=== PATIENT | female | born 1965 | race Caucasian/White ===

== ENCOUNTER 2017-08-12 08:29 | Observation (INO) | payer BC ==
[~2017-08-12] VITALS: Ht 165.1 cm; Wt 85.7 kg
[2017-08-12 09:47] LABS: BASOPHILS % 0.2 % (0.0-1.0); EOSINOPHILS # (AUTO) 0.3 (0.0-0.4); EOSINOPHILS % 2.4 % (0.0-6.0); HEMATOCRIT 24.9 % (34.2-44.1); LYMPHOCYTES # (AUTO) 2.5 (1.0-3.2); LYMPHOCYTES % 19.2 % (18.0-39.1); MEAN CORPUSCULAR HEMOGLOBIN 21.1 pg (28-32); MEAN CORPUSCULAR HGB CONC 30.1 g/dL (31-35); MEAN CORPUSCULAR VOLUME 70.1 fL (81-99); MONOCYTES # (AUTO) 0.6 (0.2-0.8); MONOCYTES % 4.8 % (4.4-11.3); NEUTROPHILS # (AUTO) 9.2 (2.1-6.9); NEUTROPHILS % 72.2 % (38.7-80.0); PLATELET COUNT 447 x10e3/uL (140-360); RED BLOOD COUNT 3.55 x10e6/uL (3.6-5.1); RED CELL DISTRIBUTION WIDTH 16.4 % (11.7-14.4)
--- NOTE | 2017-08-12 09:48 | Diagnostic Imaging Report ---
EXAMINATION: CHEST SINGLE (PORTABLE) INDICATION: Increased heart rate. \S\ERMD ORDER \S\[id number] \S\0905 \S\Y COMPARISON: None FINDINGS: AP view TUBES and LINES: None. LUNGS: Limited by body habitus. Lungs are well inflated. Lungs are clear. There is no evidence of pneumonia or pulmonary edema. PLEURA: No pleural effusion or pneumothorax. HEART AND MEDIASTINUM: The cardiomediastinal silhouette is unremarkable. BONES AND SOFT TISSUES: No acute osseous lesion. Soft tissues are unremarkable. UPPER ABDOMEN: No free air under the diaphragm. IMPRESSION: No acute thoracic abnormality. Signed by: Dr. Abhay Casas MD on 08/12/2017 9:44 AM
[2017-08-12 10:11] LABS: HEMOGLOBIN 7.5 g/dL (12.0-16.0)
[2017-08-12 10:18] LABS: ALANINE AMINOTRANSFERASE 38 IU/L (0-55); ALBUMIN 3.5 g/dL (3.5-5.0); ALBUMIN/GLOBULIN RATIO 0.9 (0.8-2.0); ALKALINE PHOSPHATASE 74 IU/L (40-150); BLOOD UREA NITROGEN 16 mg/dL (7-26); BUN/CREATININE RATIO 20 (6-25); CALCIUM 9.2 mg/dL (8.4-10.2); CARBON DIOXIDE 22 mmol/L (22-29); CHLORIDE 107 mmol/L (98-107); CREATINE KINASE 48 IU/L (29-168); CREATININE, SERUM 0.81 mg/dL (0.57-1.11); EST GLOMERULAR FILTRATION RATE > 60 ML/MIN (60-); GLUCOSE 112 mg/dL (74-118); SODIUM 137 mmol/L (136-145)
[2017-08-12 10:36] LABS: INR 0.91; PARTIAL THROMBOPLASTIN TIME 28.1 seconds (23.8-35.5); PROTHROMBIN TIME 12.7 seconds (11.9-14.5)
[2017-08-12 10:38] LABS: THYROID STIMULATING HORMONE 2.842 uIU/mL (0.350-4.940); TROPONIN I 0.013 ng/mL (0-0.300)
[2017-08-12 11:53] LABS: BILIRUBIN,URINE NEGATIVE (NEGATIVE); CLARITY,URINE CLEAR (CLEAR); COLOR,URINE YELLOW (YELLOW); KETONES,URINE NEGATIVE (NEGATIVE); LEUKOCYTE ESTERASE ,URINE NEGATIVE (NEGATIVE); NITRITE,URINE NEGATIVE (NEGATIVE); PROTEIN,URINE DIPSTICK NEGATIVE (NEGATIVE); URINE UROBILINOGEN 0.2 mg/dL (0.2 - 1)
[2017-08-12 12:01] LABS: % IRON SATURATION 3 % (15-50); IRON 16 ug/dL (50-170); TOTAL IRON BINDING CAPACITY 532 ug/dL (261-478); TRANSFERRIN 380 mg/dL (180-382)
[2017-08-12 12:11] LABS: BACTERIA,URINE FEW /HPF; EPITHELIAL CELLS,URINE FEW /LPF; RBC,URINE 0-5 /HPF (0-5); WBC,URINE (MAN) 0-5 /HPF (0-5)
[2017-08-12] MEDS: SODIUM CHLORIDE 0.9% 1000ML 1,000 ML IV SCH ×2 (12:26→18:45)
[2017-08-12 13:00] VITALS: BP 141/62
[2017-08-12] MEDS ORDERED: CIPRO500 MG PO (13:56)
[2017-08-12] MEDS ORDERED: ASPIRIN ENTERI325 MG PO (13:56)
[2017-08-12] MEDS ORDERED: SUPER B COMPLE1 EACH PO (13:56)
[2017-08-12] MEDS ORDERED: FISH OIL 500 M1 EAC1 PO (13:56)
[2017-08-12 14:08] VITALS: BP 141/62
[2017-08-12] MEDS ORDERED: BISACODYL 5 MG TAB EC PO ONE (15:30)
[2017-08-12] MEDS ORDERED: PEG (High)/E-LYTE SOLN 4,000 ML BTL PO ONE (15:30)
--- NOTE | 2017-08-12 15:57 | Consultation ---
DATE OF CONSULTATION: August 12, 2017 GASTROENTEROLOGY CONSULTATION REFERRING PHYSICIAN: Dr. Lema. REASON FOR CONSULTATION: Anemia. HISTORY OF PRESENT ILLNESS: Ms. Bashir is a pleasant 52-year-old woman who came in with weakness and palpitations. It has been going on for 3 or 4 days now. She has a little bit of lower abdominal pain and discomfort and lately has had constipation with hard stools. She says she has had anemia on and off her whole life. She has never had an endoscopic evaluation. She does not have heavy periods. She has no other overt bleeding. Her brother has celiac disease, and an older sister is also anemic. She was started on iron pills 5 years ago, which improved the anemia. She does have joint pain but no rashes. PAST MEDICAL HISTORY: Hypothyroidism and iron deficiency anemia. MEDICATIONS AND ALLERGIES: Reviewed. Please see MAR medication reconciliation form. SOCIAL HISTORY: No alcohol, tobacco or illicit substance. FAMILY HISTORY: Positive for anemia and celiac disease as mentioned. REVIEW OF SYSTEMS: Ten-system review is positive for that mentioned in HPI, otherwise unremarkable. PHYSICAL EXAMINATION GENERAL: Pleasant, alert, oriented, pale, in no acute distress. HEENT: Pupils equal, round, reactive to light, anicteric. Oropharynx is clear. Mucous membranes are moist. NECK: Supple. LUNGS: Clear. CARDIOVASCULAR: S1/S2. ABDOMEN: Soft. Mildly tender in the left lower quadrant. No rebound, guarding or mass. EXTREMITIES: No clubbing, cyanosis or edema. PSYCHIATRIC: Calm, cooperative. NEUROLOGIC: Nonfocal. HEMATOLOGIC/ONCOLOGIC: No bruising or adenopathy. The electronic health record is reviewed for laboratory and radiologic studies as well as history. ASSESSMENT 1. Iron deficiency anemia. 2. Family history of anemia and celiac disease. 3. Possible recent urinary tract infection and left lower quadrant pain. PLAN: At the current time, will need to check celiac panel and get a CAT scan to rule out significant intra-abdominal pathology such as diverticulitis. Will plan for a bowel prep today and EGD/colonoscopy tomorrow assuming no major findings on the CAT scan. She is going to get transfused. Will continue to provide supportive care. Thank you very much for asking me to see Ms. Bashir. Any questions or concerns, please do not hesitate to contact me. Job#: [id number] EV
[2017-08-12] MEDS ORDERED: DIATRIZOATE MEGL/DIATRIZOA SOD 30 ML BTL PO ONE (16:16)
[2017-08-12 16:44] VITALS: BP 132/63
[2017-08-12] MEDS: SODIUM CHLORIDE 0.9% 250ML 250 ML IV ONE ×2 (18:40→19:17)
[2017-08-12] MEDS ORDERED: IOPAMIDOL 370 MG/ML 200 ML INFUS..BTL INJ ONE (18:56)
[2017-08-12] MEDS ORDERED: SODIUM CHLORIDE 0.9% 50ML 50 ML ONE (18:56)
--- NOTE | 2017-08-12 19:28 | Diagnostic Imaging Report ---
EXAM: CT Abdomen and Pelvis WITH contrast INDICATION: Abdominal pain and anemia COMPARISON: None. TECHNIQUE: Abdomen and pelvis were scanned utilizing a multidetector helical scanner from the lung base to the pubic symphysis after administration of IV contrast. Coronal and sagittal reformations were obtained. Routine protocol was performed. Scan was performed when during portal venous phase. IV CONTRAST: 100 mL of Isovue-370 ORAL CONTRAST: Gastrografin RADIATION DOSE: Total DLP: 718.64 mGy*cm Estimated effective dose: (DLP x 0.015 x size factor) mSv COMPLICATIONS: None FINDINGS: LINES and TUBES: None. LOWER THORAX: Unremarkable HEPATOBILIARY: No focal hepatic lesions. No biliary ductal dilation. GALLBLADDER: No radio-opaque stones or sludge. No wall thickening. SPLEEN: No splenomegaly. PANCREAS: No focal masses or ductal dilatation. ADRENALS: No adrenal nodules KIDNEYS/URETERS: Kidneys enhance symmetrically. No hydronephrosis. No cystic or solid mass lesions. No stones. GI TRACT: No abnormal distention, wall thickening, or evidence of bowel obstruction. Appendix is normal. PELVIC ORGANS/BLADDER: The uterus is enlarged with multiple fibroids throughout the myometrium. The uterus measures 11 x 9 x 8.7 cm LYMPH NODES: No lymphadenopathy. VESSELS: Unremarkable. PERITONEUM / RETROPERITONEUM: No free air or fluid. BONES: There are mild degenerative changes in the lumbar spine. SOFT TISSUES: Unremarkable. IMPRESSION: 1. No evidence of acute intra-abdominal or pelvic abnormality. 2. However, there are multiple myometrial fibroids with an enlarged uterus. Signed by: Dr. Bandar Horvath M.D. on 08/12/2017 7:24 PM
[2017-08-12 20:00] VITALS: BP 144/72
[2017-08-13] VITALS (9 sets, daily range): BP systolic 113–130; BP diastolic 57–69
[2017-08-13] MEDS ORDERED: SODIUM CHLORIDE 0.9% 250ML 250 ML ONE (03:02)
[2017-08-13] MEDS ORDERED: PEG (High)/E-LYTE SOLN 4,000 ML BTL PO ONE (03:15)
[2017-08-13] MEDS ORDERED: BISACODYL 5 MG TAB EC PO ONE (03:15)
[2017-08-13] MEDS: SODIUM CHLORIDE 0.9% 1000ML 1,000 ML IV SCH ×3 (03:17→18:01)
[2017-08-13] MEDS ORDERED: ONDANSETRON HCL INJ 2 MG/ML VIAL IV PRN (06:00)
--- NOTE | 2017-08-13 07:32 | History and Physical ---
REASON FOR ADMISSION: The patient comes in with palpitations. HISTORY OF PRESENT ILLNESS: Ms. Rebeca Bashir is a 52-year-old female with a history of palpitations that has been going on for a month. She does have some black, tarry stool according to her for the last month's time. She was seen by me in the clinic about 2 days ago. H and H were 7.5. She was asked to come to the emergency room for possible evaluation and also blood transfusion if needed. PAST HISTORY: Noncontributory. No medical history. The patient's surgical history is noncontributory. MEDICATIONS: She takes at home: 1. Aspirin 325 mg enteric-coated. 2. B complex. 3. Ciprofloxacin. 4. Everett-3 fatty acids. ALLERGIES: SHE IS ALLERGIC TO EGG DERIVATIVES, PENICILLIN, SUNSCREEN AND PEANUTS. SOCIAL HISTORY: No EtOH. No IV drug abuse. FAMILY HISTORY: Noncontributory. REVIEW OF SYSTEMS: Negative for chest pain. Positive for shortness of breath and palpitations. No nausea, vomiting, diarrhea. No constipation. No hematochezia. Positive for melena. No hematemesis. Positive for recent onset of abdominal cramping. Also, uterine bleeding, which was recent according to the patient. The patient has, otherwise, no diplopia and no blurry vision. As mentioned above, positive for palpitations. MICROBIOLOGY: Urine culture is pending. LABORATORY VALUES: Hemoglobin 7.5. Hematocrit 24.9. Neutrophil count is 9.2. Coags were normal. The patient also had a CT scan, which shows no evidence of acute intra-abdominal pathology. However, multiple myometrial fibrosis with an enlarged uterus is seen. PHYSICAL EXAMINATION GENERAL: The patient is alert and oriented times 3. VITAL SIGNS: Temperature 97.8, blood pressure 113/62, respiratory rate 18. Pulse is 87. When she came in, it was 100. HEENT: Normocephalic. No icterus. Positive for pallor. CV: S1 and S2 normal, regular rate and rhythm. ABDOMEN: Slightly tender in the suprapubic area. EXTREMITIES: No clubbing, no cyanosis, no edema. ASSESSMENT: Blood loss anemia, possibly uterine or possibly colon-related. She is going to have an endoscopy and colonoscopy today. Also, I will consult STORE CLERK CHECKER for further evaluation. Further recommendations per the clinical course. We will continue to monitor the patient. Job#: [id number] JACEY
[2017-08-13 09:01] LABS: BASOPHILS % 0.3 % (0.0-1.0); EOSINOPHILS # (AUTO) 0.2 (0.0-0.4); EOSINOPHILS % 1.7 % (0.0-6.0); HEMATOCRIT 32.1 % (34.2-44.1); HEMOGLOBIN 9.7 g/dL (12.0-16.0); LYMPHOCYTES # (AUTO) 2.8 (1.0-3.2); LYMPHOCYTES % 23.5 % (18.0-39.1); MEAN CORPUSCULAR HEMOGLOBIN 22.5 pg (28-32); MEAN CORPUSCULAR HGB CONC 30.2 g/dL (31-35); MEAN CORPUSCULAR VOLUME 74.3 fL (81-99); MONOCYTES # (AUTO) 0.6 (0.2-0.8); MONOCYTES % 5.1 % (4.4-11.3); NEUTROPHILS # (AUTO) 8.1 (2.1-6.9); NEUTROPHILS % 68.6 % (38.7-80.0); PLATELET COUNT 397 x10e3/uL (140-360); RED BLOOD COUNT 4.32 x10e6/uL (3.6-5.1); RED CELL DISTRIBUTION WIDTH 17.5 % (11.7-14.4)
[2017-08-13 09:21] LABS: ALANINE AMINOTRANSFERASE 38 IU/L (0-55); ALBUMIN 3.5 g/dL (3.5-5.0); ALBUMIN/GLOBULIN RATIO 0.9 (0.8-2.0); ALKALINE PHOSPHATASE 69 IU/L (40-150); BLOOD UREA NITROGEN 8 mg/dL (7-26); BUN/CREATININE RATIO 10 (6-25); CARBON DIOXIDE 22 mmol/L (22-29); CHLORIDE 106 mmol/L (98-107); CREATININE, SERUM 0.83 mg/dL (0.57-1.11); EST GLOMERULAR FILTRATION RATE > 60 ML/MIN (60-); GLUCOSE 98 mg/dL (74-118); SODIUM 138 mmol/L (136-145)
[2017-08-13 09:31] LABS: % IRON SATURATION 5 % (15-50); IRON 27 ug/dL (50-170); TOTAL IRON BINDING CAPACITY 507 ug/dL (261-478); TRANSFERRIN 362 mg/dL (180-382)
--- NOTE | 2017-08-13 10:03 | Diagnostic Imaging Report ---
PROCEDURE:TRANSVAGINAL ULTRASOUND COMPARISON:CT abdomen and pelvis 08/12/2017. INDICATIONS:Fibroids TECHNIQUE: Grayscale transverse and sagittal transvaginal images were obtained of the pelvis. FINDINGS: UTERUS: Enlarged, measuring 12 x 8.3 x 9.3 cm. Heterogeneous parenchymal echotexture with multiple masses of mixed echogenicity compatible with fibroids. A cervical fibroid measures 3.7 x 4 x 4.2 cm. A fibroid in the lower uterine segment measures 2.9 x 3.8 x 3.6 cm. A fundal fibroid measures 3.5 x 4.3 x 3.3 cm. Additional fibroids range in size from 4.5-5.1 cm in maximum dimension. Multiple cervical nabothian cysts. ENDOMETRIUM: Mildly thickened measuring 1.9 cm. Homogenous. RIGHT OVARY: 3.6 x 2.1 x 2.7 cm. Dominant follicle or simple cyst measuring 2.3 x 1.6 x 2.1 cm. LEFT OVARY: 3.9 x 1.2 x 2.7 cm. Several small follicles. There is no free fluid within the pelvis. No adnexal masses. CONCLUSION: Enlarged uterus with multiple intramural and subserosal fibroids measuring up to 5.1 cm in maximum diameter. The entirety of the uterine bulk is seen to better advantage on comparison abdominal CT 08/12/2017. Mildly thickened endometrium likely indicates secretory phase of the menstrual cycle. Dictated by: Benji Corea M.D. on 08/13/2017 at 10:12 Electronically approved by: Benji Corea M.D. on 08/13/2017 at 10:12
[2017-08-13] MEDS ORDERED: FENTANYL CITRATE/PF 100MCG/2 ML INJ ONE (12:53)
[2017-08-13] MEDS ORDERED: MIDAZOLAM HCL 2 MG/2 ML VIAL ONE (12:53)
[2017-08-13] MEDS ORDERED: LIDOCAINE HCL 2% LOCAL INJ 5 ML SDV VIAL INJ ONE (15:08)
[2017-08-13] MEDS ORDERED: PROPOFOL IV EMULSION 10 MG/ML 20 ML VIAL ONE (15:08)
[2017-08-13] MEDS ORDERED: DIPHENHYDRAMINE HCL INJ 25 MG in SODIUM CHLORIDE 0.9% 50ML 50 ML IV NR (18:30)
[2017-08-13] MEDS ORDERED: FAMOTIDINE INJ 20 MG in SODIUM CHLORIDE 0.9% 50ML 50 ML IV NR (18:30)
[2017-08-13] MEDS ORDERED: DEXAMETHASONE PHOS 10MG INJ 20 MG in SODIUM CHLORIDE 0.9% 50ML 50 ML IV NR (18:30)
[2017-08-13] MEDS ORDERED: IRON DEXTRAN INJ 50 MG in SODIUM CHLORIDE 0.9% 100 ML IV NR (19:00)
[2017-08-13] MEDS ORDERED: IRON DEXTRAN INJ 500 MG in SODIUM CHLORIDE 0.9% 500ML 500 ML IV PRN (22:00)
[2017-08-14 00:34] VITALS: BP 104/58
[2017-08-14] MEDS: SODIUM CHLORIDE 0.9% 1000ML 1,000 ML IV SCH (02:45)
[2017-08-14 04:00] VITALS: BP 118/62
[2017-08-14 06:55] LABS: BASOPHILS % 0.2 % (0.0-1.0); HEMATOCRIT 31.8 % (34.2-44.1); HEMOGLOBIN 9.8 g/dL (12.0-16.0); LYMPHOCYTES # (AUTO) 1.6 (1.0-3.2); LYMPHOCYTES % 12.1 % (18.0-39.1); MEAN CORPUSCULAR HEMOGLOBIN 22.6 pg (28-32); MEAN CORPUSCULAR HGB CONC 30.8 g/dL (31-35); MEAN CORPUSCULAR VOLUME 73.3 fL (81-99); MONOCYTES # (AUTO) 0.2 (0.2-0.8); MONOCYTES % 1.2 % (4.4-11.3); NEUTROPHILS # (AUTO) 11.2 (2.1-6.9); NEUTROPHILS % 85.7 % (38.7-80.0); PLATELET COUNT 459 x10e3/uL (140-360); RED BLOOD COUNT 4.34 x10e6/uL (3.6-5.1); RED CELL DISTRIBUTION WIDTH 17.7 % (11.7-14.4)
[2017-08-14 07:25] LABS: ANION GAP 12.4 mmol/L (8-16); BLOOD UREA NITROGEN 9 mg/dL (7-26); BUN/CREATININE RATIO 12 (6-25); CALCIUM 9.3 mg/dL (8.4-10.2); CARBON DIOXIDE 23 mmol/L (22-29); CHLORIDE 109 mmol/L (98-107); CREATININE, SERUM 0.76 mg/dL (0.57-1.11); EST GLOMERULAR FILTRATION RATE > 60 ML/MIN (60-); GLUCOSE 134 mg/dL (74-118); POTASSIUM 4.4 mmol/L (3.5-5.1); SODIUM 140 mmol/L (136-145)
[2017-08-14] MEDS: PANTOPRAZOLE SOD 40 MG TABEC PO SCH (08:06)
[2017-08-14 08:07] VITALS: BP 131/71
[2017-08-14 08:31] VITALS: BP 131/71
[2017-08-14 16:27] VITALS: BP 126/59
[2017-08-14 20:00] VITALS: BP 124/78
[2017-08-15] VITALS: BP 98/50
[2017-08-15 04:00] VITALS: BP 124/65
[2017-08-15] MEDS: PANTOPRAZOLE SOD 40 MG TABEC PO SCH ×2 (07:30→11:40)
[2017-08-15 07:31] LABS: BASOPHILS # (AUTO) 0.1 (0.0-0.1); BASOPHILS % 0.5 % (0.0-1.0); EOSINOPHILS % 0.2 % (0.0-6.0); HEMATOCRIT 32.9 % (34.2-44.1); HEMOGLOBIN 9.7 g/dL (12.0-16.0); LYMPHOCYTES # (AUTO) 6.3 (1.0-3.2); LYMPHOCYTES % 35.2 % (18.0-39.1); MEAN CORPUSCULAR HEMOGLOBIN 22.1 pg (28-32); MEAN CORPUSCULAR HGB CONC 29.5 g/dL (31-35); MEAN CORPUSCULAR VOLUME 75.1 fL (81-99); MONOCYTES # (AUTO) 1.1 (0.2-0.8); MONOCYTES % 6.1 % (4.4-11.3); NEUTROPHILS # (AUTO) 9.9 (2.1-6.9); NEUTROPHILS % 54.8 % (38.7-80.0); PLATELET COUNT 448 x10e3/uL (140-360); RED BLOOD COUNT 4.38 x10e6/uL (3.6-5.1); RED CELL DISTRIBUTION WIDTH 18.6 % (11.7-14.4)
[2017-08-15 07:51] LABS: ALANINE AMINOTRANSFERASE 27 IU/L (0-55); ALBUMIN 3.3 g/dL (3.5-5.0); ALBUMIN/GLOBULIN RATIO 0.8 (0.8-2.0); ALKALINE PHOSPHATASE 67 IU/L (40-150); ANION GAP 14.2 mmol/L (8-16); BLOOD UREA NITROGEN 19 mg/dL (7-26); BUN/CREATININE RATIO 21 (6-25); CALCIUM 9.2 mg/dL (8.4-10.2); CARBON DIOXIDE 24 mmol/L (22-29); CHLORIDE 106 mmol/L (98-107); CREATININE, SERUM 0.91 mg/dL (0.57-1.11); EST GLOMERULAR FILTRATION RATE > 60 ML/MIN (60-); GLUCOSE 103 mg/dL (74-118); POTASSIUM 4.2 mmol/L (3.5-5.1); SODIUM 140 mmol/L (136-145)
[2017-08-15 08:12] VITALS: BP 137/71
[2017-08-15 09:56] LABS: LYMPHOCYTES % (MANUAL) 38 % (19-48); METAMYELOCYTES % (MANUAL) 2 % (0-0); MONOCYTES % (MANUAL) 3 % (3.4-9.0); NEUTROPHILS % (MANUAL) 57 % (40-74)
[2017-08-15 09:57] LABS: ANISOCYTOSIS SLIGHT; HYPOCHROMASIA SLIGHT; PLATELET ESTIMATE SLIGHTLY INCREASED; PLATELET MORPHOLOGY COMMENT FEW LARGE; POIKILOCYTOSIS SLIGHT; POLYCHROMASIA FEW; RBC MORPHOLOGY COMMENT ABNORMAL
[2017-08-15 12:31] LABS: BASOPHILS # (AUTO) 0.1 (0.0-0.1); BASOPHILS % 0.5 % (0.0-1.0); EOSINOPHILS # (AUTO) 0.1 (0.0-0.4); EOSINOPHILS % 0.3 % (0.0-6.0); HEMATOCRIT 32.9 % (34.2-44.1); HEMOGLOBIN 9.9 g/dL (12.0-16.0); LYMPHOCYTES # (AUTO) 5.2 (1.0-3.2); LYMPHOCYTES % 33.4 % (18.0-39.1); MEAN CORPUSCULAR HEMOGLOBIN 22.3 pg (28-32); MEAN CORPUSCULAR HGB CONC 30.1 g/dL (31-35); MEAN CORPUSCULAR VOLUME 74.1 fL (81-99); MONOCYTES # (AUTO) 0.8 (0.2-0.8); MONOCYTES % 5.4 % (4.4-11.3); NEUTROPHILS # (AUTO) 8.9 (2.1-6.9); NEUTROPHILS % 57.7 % (38.7-80.0); PLATELET COUNT 463 x10e3/uL (140-360); RED BLOOD COUNT 4.44 x10e6/uL (3.6-5.1); RED CELL DISTRIBUTION WIDTH 19.1 % (11.7-14.4)
[2017-08-15 14:14] VITALS: BP 140/77
--- NOTE | 2017-08-15 14:45 | Consultation ---
DATE OF CONSULTATION: August 13, 2017 CONSULTATION TO: Dr. Pipe Hernandez. HISTORY OF PRESENT ILLNESS: Rebeca Bashir is a 62-year-old white female who was referred to me for evaluation of anemia and a cecal mass. No history of weight loss. The patient had presented with some tarry stool last month, subsequently was found to have a hemoglobin of 7.5, subsequently admitted for further evaluation and treatment. MEDICATIONS AT HOME 1. Aspirin. 2. B complex. 3. Cipro. 4. Cavalier-3. ALLERGIES: EGGS, PENICILLIN, SUNSCREEN, AND PEANUTS. SOCIAL HISTORY: Noncontributory. FAMILY HISTORY: Noncontributory. REVIEW OF SYSTEMS HEENT: Normal. CARDIAC: Normal. RESPIRATORY: Normal. GI: No colon cancer. : Normal. MUSCULOSKELETAL: Normal. SKIN AND BREASTS: Normal. NEUROENDOCRINE: Essentially normal. PHYSICAL EXAMINATION GENERAL: Moderately built female, anemic. NECK: No palpable adenopathy. HEART: Within normal limits. LUNGS: Clear. BREASTS: Normal. ABDOMEN: Obese. There is no hepatosplenomegaly. RECTAL: Deferred. VAGINAL: Deferred. CENTRAL NERVOUS SYSTEM: Essentially normal. EXTREMITIES: Essentially normal. LABORATORY DATA: Shows a hemoglobin of 7.5, hematocrit 24.9, white count 12,750, MCV low at 70.1, MCHC low at 30.1, RDW high at 16.4, platelets high at 447. IMAGING: Showed the patient to have a CAT scan of the abdomen, there was no evidence of acute intra-abdominal pathology; however, there was fibroids. The uterus measured 11 x 9 x 8.7 cm. The patient also had a transvaginal ultrasound, which showed enlarged uterus with a fibroid which was 5.1 cm. The patient had a colonoscopy which showed a cecal mass. The biopsies have been done and the patient had been transfused to 9.7. IMPRESSION 1. 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 2. Iron deficiency anemia. 3. Hyperglobulinemia at 3.8, quantitation of immunoglobulins pending. 4. Fibroid of the uterus. 5. History of hypertension. PLAN, COMMENTS AND SUGGESTIONS: Suggest a CEA, suggest curative surgery. Further treatment depending on the above surgery and final pathology. Job#: [id number] VAS cc:Mylene Love MD cc:Vinny Bell MD cc:PIPE HERNANDEZ MD
[2017-08-16 06:16] LABS: ENDOMYSIAL ANTIBODIES, IGA Negative (Negative)
== END 2017-08-15 14:00 | disposition home or self-care (01) ==
LOC: ER 08:29 → INTOOBSV 11:01 → ERHOLD 11:01 → MED/SURG 12:04
PROVIDERS: ADMIT Family Medicine; ATTEND Family Medicine
DX: C18.0 Malignant neoplasm of cecum (principal); D62 Acute posthemorrhagic anemia; K29.80 Duodenitis without bleeding; K29.50 Unspecified chronic gastritis without bleeding; K31.9 Disease of stomach and duodenum, unspecified; K64.4 Residual hemorrhoidal skin tags; D25.2 Subserosal leiomyoma of uterus; D25.1 Intramural leiomyoma of uterus; N88.8 Other specified noninflammatory disorders of cervix uteri; Z83.2 Family history of diseases of the blood and blood-forming organs and certain disorders involving the immune mechanism; R77.1 Abnormality of globulin; E03.9 Hypothyroidism, unspecified; Z79.82 Long term (current) use of aspirin; Z88.0 Allergy status to penicillin; Z91.012 Allergy to eggs; Z91.010 Allergy to peanuts; Z91.048 Other nonmedicinal substance allergy status; N83.201 Unspecified ovarian cyst, right side; N83.02 Follicular cyst of left ovary
CPT/HCPCS: 36415 ×4; 36430 ×2; 43239; 45380; 71045; 74177; 76830; 80048; 80053 ×3; 81001; 82270 ×2; 82378; 82550; 82553; 82607; 82784; 83516; 83540 ×2; 84443; 84466 ×2; 84484; 85025 ×4; 85610; 85730; 86256; 86850; 86900; 86920; 87086; 88305; 88312; 88342; 93005; 99284; G0378 ×4; J1100; J1200; J1750; J2001; J2250; J2405; J7030 ×2; J7040; J7050 ×3; P9016 ×2; Q9967

== ENCOUNTER 2017-09-17 08:09 | Inpatient (IN) | payer BC ==
--- NOTE | 2017-09-13 14:37 | Diagnostic Imaging Report ---
PROCEDURE: X-RAY CHEST, TWO VIEWS COMPARISON: 08/12/2017. INDICATIONS: PRE-OP FOR EXLAP FINDINGS: Lungs are well-inflated. No focal airspace consolidation, pleural effusion, or pneumothorax cardiomediastinal contour and pulmonary vasculature are within normal limits. No acute osseous abnormality. CONCLUSION: No acute cardiopulmonary abnormality. Dictated by: Benji Corea M.D. on 09/13/2017 at 14:37 Electronically approved by: Benji Corea M.D. on 09/13/2017 at 14:37
[2017-09-13 14:38] LABS: BASOPHILS # (AUTO) 0.1 (0.0-0.1); BASOPHILS % 0.6 % (0.0-1.0); EOSINOPHILS # (AUTO) 0.4 (0.0-0.4); EOSINOPHILS % 3.9 % (0.0-6.0); HEMATOCRIT 33.3 % (34.2-44.1); HEMOGLOBIN 10.1 g/dL (12.0-16.0); LYMPHOCYTES # (AUTO) 2.9 (1.0-3.2); LYMPHOCYTES % 27.8 % (18.0-39.1); MEAN CORPUSCULAR HEMOGLOBIN 23.6 pg (28-32); MEAN CORPUSCULAR HGB CONC 30.3 g/dL (31-35); MEAN CORPUSCULAR VOLUME 77.8 fL (81-99); MONOCYTES # (AUTO) 0.6 (0.2-0.8); MONOCYTES % 5.5 % (4.4-11.3); NEUTROPHILS # (AUTO) 6.4 (2.1-6.9); NEUTROPHILS % 61.7 % (38.7-80.0); PLATELET COUNT 367 x10e3/uL (140-360); RED BLOOD COUNT 4.28 x10e6/uL (3.6-5.1); RED CELL DISTRIBUTION WIDTH 22.7 % (11.7-14.4)
[2017-09-13 14:53] LABS: ANION GAP 14.2 mmol/L (8-16); BLOOD UREA NITROGEN 16 mg/dL (7-26); BUN/CREATININE RATIO 19 (6-25); CALCIUM 9.3 mg/dL (8.4-10.2); CARBON DIOXIDE 25 mmol/L (22-29); CHLORIDE 107 mmol/L (98-107); CREATININE, SERUM 0.84 mg/dL (0.57-1.11); EST GLOMERULAR FILTRATION RATE > 60 ML/MIN (60-); GLUCOSE 99 mg/dL (74-118); POTASSIUM 4.2 mmol/L (3.5-5.1); SODIUM 142 mmol/L (136-145)
[2017-09-13 17:08] LABS: EOSINOPHILS % (MANUAL) 3 % (0-7); HYPOCHROMASIA MODERATE; LYMPHOCYTES % (MANUAL) 22 % (19-48); MONOCYTES % (MANUAL) 2 % (3.4-9.0); NEUTROPHILS % (MANUAL) 69 % (40-74); PLATELET ESTIMATE ADEQUATE; PLATELET MORPHOLOGY COMMENT NORMAL; RBC MORPHOLOGY COMMENT NORMAL
[~2017-09-17] VITALS: Ht 165.1 cm; Wt 85.7 kg
[~2017-09-17 08:09] MED LIST: ASPIRIN ENTERI325 MG PO; ASPIRIN325 MG PO; CIPRO500 MG PO; FISH OIL 500 M1 EAC1 PO; SUPER B COMPLE1 EACH PO; TYLENOL
--- OUTSIDE RECORDS SUMMARY | 2017-09-17 08:12 | XMS REPORT ---
Author Author [facility] Address Unknown Phone Unavailable Care Team Providers Care Manager Research And Development Name Role Phone FEI WISE Unavailable Unavailable PIPE HERNANDEZ Unavailable Unavailable Problems This patient has no known problems. Allergies, Adverse Reactions, Alerts This patient has no known allergies or adverse reactions. Medications This patient has no known medications. Results Test Description Test Time Test Comments Text Results Atomic Results Result Comments CHEST 2 VIEWS [place] [address] Patient Name: VANCE LORA MR #: [id number] : 1965 Age/Sex: 52/F Req #: [id number] [facility] Physician: Ordered by: FEI WISE MD Report #: [id number] Location: OR Room/Bed: Procedure: [id number] DX/CHEST 2 VIEWS Exam Date: 09/13/17 Exam Time: 1410 REPORT STATUS: Signed PROCEDURE: X-RAY CHEST, TWO VIEWS COMPARISON: 08/12/2017. INDICATIONS: PRE-OP FOR EXLAP FINDINGS: Lungs are well-inflated. No focal airspace consolidation, pleural effusion, or pneumothorax cardiomediastinal contour and pulmonary vasculature are within normal limits. No acute osseous abnormality. CONCLUSION: No acute cardiopulmonary abnormality. Dictated by: Tonya Mar M.D. on 09/13/2017 at 14:37 Electronically approved by: Tonya Mar M.D. on 2017 at 14:37 Dictated By: TONYA MAR MD 36 Transcribed By: SANTY on 09/13/171436 COPY TO: FEI WISE MD US TRANSVAGINAL [place] [address] Patient Name: VANCE LORA MR #: [id number] : 1965 Age/Sex: 52/F Req #: [id number] Adm Physician: PIPE HERNANDEZ MD Ordered by: MARIAH SORENSEN DO Report #: [id number] Location: MED/SURG Room/Bed: [facility] ____ Procedure: [id number] US/US TRANSVAGINAL Exam Date: Exam Time: REPORT STATUS: Signed PROCEDURE: TRANSVAGINAL ULTRASOUND COMPARISON: CT abdomen and pelvis 08/12/2017. INDICATIONS: Fibroids TECHNIQUE: Grayscale transverse and sagittal transvaginal images were obtained of the pelvis. FINDINGS: UTERUS: Enlarged, measuring 12 x 8.3 x 9.3 cm. Heterogeneous parenchymal echotexture with multiple masses of mixed echogenicity compatible with fibroids. A cervical fibroid measures 3.7 x 4 x 4.2 cm. A fibroid in the lower uterine segment measures 2.9 x 3.8 x 3.6 cm. A fundal fibroid measures 3.5 x 4.3 x 3.3 cm. Additional fibroids range in size from 4.5-5.1 cm in maximum dimension. Multiple cervical nabothian cysts. ENDOMETRIUM: Mildly thickened measuring 1.9 cm. Homogenous. RIGHT OVARY: 3.6 x 2.1 x 2.7 cm. Dominant follicle or simple cyst measuring 2.3 x 1.6 x 2.1 cm. LEFT OVARY: 3.9 x 1.2 x 2.7 cm. Several small follicles. There is no free fluid within the pelvis. No adnexal masses. CONCLUSION: Enlarged uterus with multiple intramural and subserosal fibroids measuring up to 5.1 cm in maximum diameter. The entirety of the uterine bulk is seen to better advantage on comparison abdominal CT 08/12/2017. Mildly thickened endometrium likely indicates secretory phase of the menstrual cycle. Dictated by: Tonya Mar M.D. on 08/13/2017 at 10:12 Electronically approved by: Tonya Mar M.D. on 08/13/2017 at 10:12 Dictated By : TONYA MAR MD 1012 Transcribed By: SANTY on 08/13/17 1012 COPY TO: MARIAH SORENSEN DO CT ABDOMEN/PELVIS W [place] [address] Patient Name: VANCE LORA MR #: [id number] : 1965 Age/Sex: 52/F Req #: [id number] Adm Physician: PIPE HERNANDEZ MD Ordered by: JOSEFA MERCEDES MD Report #: [id number] Location: MED/SURG Room/Bed: [facility] Procedure: [id number] CT/CT ABDOMEN/PELVIS W Exam Date: Exam Time: 1715 REPORT STATUS: Signed EXAM: CT Abdomen and Pelvis WITH contrast INDICATION: Abdominal pain and anemia COMPARISON: None. TECHNIQUE: Abdomen and pelvis were scanned utilizing a multidetector helical scanner from the lung base to the pubic symphysis after administration of IV contrast. Coronal and sagittal reformations were obtained. Routine protocol was performed. Scan was performed when during portal venous phase. IV CONTRAST: 100 mL of Isovue-370 ORAL CONTRAST: Gastrografin RADIATION DOSE: Total DLP: 718.64 mGy*cm Estimated effective dose: (DLP x 0.015 x size factor) mSv COMPLICATIONS: None FINDINGS: LINES and TUBES: None. LOWER THORAX: Unremarkable HEPATOBILIARY: No focal hepatic lesions. No biliary ductal dilation. GALLBLADDER: No radio-opaque stones or sludge. No wall thickening. SPLEEN: No splenomegaly. PANCREAS: No focal masses or ductal dilatation. ADRENALS: No adrenal nodules KIDNEYS/URETERS: Kidneys enhance symmetrically. No hydronephrosis. No cystic or solid mass lesions. No stones. GI TRACT: No abnormal distention, wall thickening, or evidence of bowel obstruction. Appendix is normal. PELVIC ORGANS/BLADDER: The uterus is enlarged with multiple fibroids throughout the myometrium. The uterus measures 11 x 9 x 8.7 cm LYMPH NODES: No lymphadenopathy. VESSELS: Unremarkable. PERITONEUM / RETROPERITONEUM: No free air or fluid. BONES: There are mild degenerative changes in the lumbar spine. SOFT TISSUES: Unremarkable. IMPRESSION: 1. No evidence of acute intra-abdominal or pelvic abnormality. 2. However, there are multiple myometrial fibroids with an enlarged uterus. Signed by: Dr. Bandar Horvath M.D. on 08/12/2017 7:24 PM Dictated By: BANDAR BRANCH MD 23 Transcribed By: VALENTINA on 08/12/171923 COPY TO: JOSEFA MERCEDES MD CHEST SINGLE (PORTABLE) [place] [address] Patient Name: VANCE LORA MR #: [id number] : 1965 Age/Sex: 52/F Req #: [id number] Adm Physician: Ordered by: ADRIÁN JOHNSTON MD Report #: [id number] Location: ER Room/Bed: Procedure: [id number] DX/CHEST SINGLE (PORTABLE) Exam Date: 08/12/17 Exam Time: 904 REPORT STATUS: Signed EXAMINATION: CHEST SINGLE (PORTABLE) INDICATION: Increased heart rate. COMPARISON: None FINDINGS: AP view TUBES and LINES: None. LUNGS: Limited by body habitus. Lungs are well inflated. Lungs are clear. There is no evidence of pneumonia or pulmonary edema. PLEURA: No pleural effusion or pneumothorax. HEART AND MEDIASTINUM: The cardiomediastinal silhouette is unremarkable. BONES AND SOFT TISSUES: No acute osseous lesion. Soft tissues are unremarkable. UPPER ABDOMEN: No free air under the diaphragm. IMPRESSION: No acute thoracic abnormality. Signed by: Dr. Abhay Faust MD on 08/12/2017 9:44 AM Dictated By: ABHAY FAUST MD 3 Transcribed By: VALENTINA on 08/12/17943 COPY TO: ADRIÁN JOHNSTON MD
[2017-09-17] MEDS ORDERED: LEVOFLOXACIN 500MG/D5W 100ML 100 ML IV ONE ×2 (12:27→15:45)
[2017-09-17] MEDS ORDERED: OXYMETAZOLINE HCL 0.05% NAS 1 SPRAY BTL ONE (12:30)
[2017-09-17] MEDS ORDERED: DEXAMETHASONE SOD PHOS INJ 4 MG/ML VIAL ONE (13:22)
[2017-09-17] MEDS ORDERED: SEVOFLURANE INHAL SOLN 250 ML PEN BTL ONE (13:22)
[2017-09-17] MEDS ORDERED: PROPOFOL IV EMULSION 10 MG/ML 20 ML VIAL ONE (13:22)
[2017-09-17] MEDS ORDERED: GLYCOPYRROLATE INJ 1MG/ 5 ML SYR ONE (13:22)
[2017-09-17] MEDS ORDERED: ONDANSETRON HCL INJ 2 MG/ML VIAL ONE ×2 (13:22→16:29)
[2017-09-17] MEDS ORDERED: ROCURONIUM BROMIDE 10 MG/ML 5ML VIAL ONE (13:22)
[2017-09-17] MEDS ORDERED: LIDOCAINE HCL 2% LOCAL INJ 5 ML SDV VIAL INJ ONE (13:22)
[2017-09-17] MEDS ORDERED: NEOSTIGMINE 5 MG/5ML SYR ONE (13:22)
[2017-09-17] MEDS ORDERED: MIDAZOLAM HCL 2 MG/2 ML VIAL ONE (14:57)
[2017-09-17] MEDS ORDERED: FENTANYL CITRATE/PF 100MCG/2 ML INJ ONE (14:57)
[2017-09-17] MEDS: DEXTROSE 5%/LACTATED RINGERS 1,000 ML IV SCH (15:37)
[2017-09-17] MEDS ORDERED: NALOXONE HCL INJ 0.4 MG/ML AMP IV PRN (15:45)
[2017-09-17] MEDS: SODIUM CHLORIDE 0.9% 250ML IRRIG IR SCH ×3 (15:45→23:45)
[2017-09-17] MEDS ORDERED: MORPHINE SULFATE 1 MG/ML 30ML PCA ONE (15:55)
[2017-09-17] MEDS ORDERED: HYDROMORPHONE 1MG/1ML INJ ONE ×2 (16:02→16:14)
[2017-09-17] MEDS ORDERED: METOCLOPRAMIDE HCL 10 MG/2ML VIAL ONE (16:29)
[2017-09-17] MEDS: MORPHINE SULFATE 1 MG/ML 30ML PCA IV PRN (16:40)
[2017-09-17 19:39] VITALS: BP 141/67
[2017-09-17 20:00] VITALS: BP 142/69
[2017-09-17] MEDS: PANTOPRAZOLE 40 MG 10ML VIAL IV SCH (23:50)
[2017-09-18] VITALS (7 sets, daily range): BP systolic 125–140; BP diastolic 58–65
[2017-09-18] MEDS: MORPHINE SULFATE 1 MG/ML 30ML PCA IV PRN
[2017-09-18] MEDS: ONDANSETRON HCL INJ 2 MG/ML VIAL IV PRN ×2 (00:36→21:14)
[2017-09-18] MEDS: SODIUM CHLORIDE 0.9% 250ML IRRIG IR SCH ×6 (03:45→23:45)
[2017-09-18 06:49] LABS: BASOPHILS % 0.1 % (0.0-1.0); HEMATOCRIT 29.2 % (34.2-44.1); HEMOGLOBIN 8.9 g/dL (12.0-16.0); LYMPHOCYTES # (AUTO) 1.6 (1.0-3.2); LYMPHOCYTES % 10.7 % (18.0-39.1); MEAN CORPUSCULAR HEMOGLOBIN 23.7 pg (28-32); MEAN CORPUSCULAR HGB CONC 30.5 g/dL (31-35); MEAN CORPUSCULAR VOLUME 77.7 fL (81-99); MONOCYTES % 6.7 % (4.4-11.3); NEUTROPHILS # (AUTO) 12.4 (2.1-6.9); PLATELET COUNT 390 x10e3/uL (140-360); RED BLOOD COUNT 3.76 x10e6/uL (3.6-5.1); RED CELL DISTRIBUTION WIDTH 21.5 % (11.7-14.4)
[2017-09-18 07:16] LABS: ANION GAP 15.4 mmol/L (8-16); BLOOD UREA NITROGEN 8 mg/dL (7-26); BUN/CREATININE RATIO 10 (6-25); CALCIUM 9.1 mg/dL (8.4-10.2); CARBON DIOXIDE 26 mmol/L (22-29); CHLORIDE 100 mmol/L (98-107); CREATININE, SERUM 0.79 mg/dL (0.57-1.11); EST GLOMERULAR FILTRATION RATE > 60 ML/MIN (60-); GLUCOSE 129 mg/dL (74-118); POTASSIUM 4.4 mmol/L (3.5-5.1); SODIUM 137 mmol/L (136-145)
[2017-09-18] MEDS: DEXTROSE 5%/LACTATED RINGERS 1,000 ML IV SCH ×3 (14:53→21:37)
[2017-09-18] MEDS: PANTOPRAZOLE 40 MG 10ML VIAL IV SCH (15:45)
[2017-09-19] VITALS (7 sets, daily range): BP systolic 105–143; BP diastolic 55–70
[2017-09-19] MEDS: DEXTROSE 5%/LACTATED RINGERS 1,000 ML IV SCH ×3 (01:48→20:10)
[2017-09-19] MEDS: SODIUM CHLORIDE 0.9% 250ML IRRIG IR SCH ×3 (03:45→12:32)
[2017-09-19] MEDS: ONDANSETRON HCL INJ 2 MG/ML VIAL IV PRN ×2 (04:50→19:40)
[2017-09-19 07:14] LABS: BASOPHILS % 0.2 % (0.0-1.0); EOSINOPHILS # (AUTO) 0.1 (0.0-0.4); EOSINOPHILS % 0.7 % (0.0-6.0); HEMOGLOBIN 8.6 g/dL (12.0-16.0); LYMPHOCYTES # (AUTO) 2.3 (1.0-3.2); LYMPHOCYTES % 16.6 % (18.0-39.1); MEAN CORPUSCULAR HEMOGLOBIN 24.1 pg (28-32); MEAN CORPUSCULAR HGB CONC 30.7 g/dL (31-35); MEAN CORPUSCULAR VOLUME 78.4 fL (81-99); MONOCYTES # (AUTO) 0.9 (0.2-0.8); MONOCYTES % 6.4 % (4.4-11.3); NEUTROPHILS # (AUTO) 10.4 (2.1-6.9); NEUTROPHILS % 75.6 % (38.7-80.0); PLATELET COUNT 364 x10e3/uL (140-360); RED BLOOD COUNT 3.57 x10e6/uL (3.6-5.1); RED CELL DISTRIBUTION WIDTH 21.9 % (11.7-14.4)
[2017-09-19 07:33] LABS: BLOOD UREA NITROGEN 5 mg/dL (7-26); BUN/CREATININE RATIO 6 (6-25); CALCIUM 9.1 mg/dL (8.4-10.2); CARBON DIOXIDE 30 mmol/L (22-29); CHLORIDE 99 mmol/L (98-107); CREATININE, SERUM 0.81 mg/dL (0.57-1.11); EST GLOMERULAR FILTRATION RATE > 60 ML/MIN (60-); GLUCOSE 116 mg/dL (74-118); SODIUM 137 mmol/L (136-145)
[2017-09-19] MEDS: ACETAMINOPHEN 1000 MG/100 ML IV PRN ×2 (09:59→20:00)
[2017-09-19] MEDS ORDERED: MORPHINE SULFATE 4 MG/ML SYR IV PRN (13:00)
[2017-09-19] MEDS: MORPHINE SULFATE 2 MG/ML SYR IV PRN ×2 (15:05→19:40)
[2017-09-19] MEDS: PANTOPRAZOLE 40 MG 10ML VIAL IV SCH (16:09)
[2017-09-19] MEDS: BISACODYL 10 MG SUPP PR SCH (20:00)
[2017-09-20] VITALS (8 sets, daily range): BP systolic 112–139; BP diastolic 58–65
[2017-09-20] MEDS: ONDANSETRON HCL INJ 2 MG/ML VIAL IV PRN ×2 (01:25→05:40)
[2017-09-20] MEDS: MORPHINE SULFATE 2 MG/ML SYR IV PRN ×3 (01:25→08:53)
[2017-09-20] MEDS: DEXTROSE 5%/LACTATED RINGERS 1,000 ML IV SCH ×2 (05:40→22:12)
[2017-09-20 07:21] LABS: BASOPHILS % 0.4 % (0.0-1.0); EOSINOPHILS # (AUTO) 0.4 (0.0-0.4); EOSINOPHILS % 3.8 % (0.0-6.0); HEMATOCRIT 25.6 % (34.2-44.1); LYMPHOCYTES # (AUTO) 2.5 (1.0-3.2); LYMPHOCYTES % 23.6 % (18.0-39.1); MEAN CORPUSCULAR HEMOGLOBIN 23.6 pg (28-32); MEAN CORPUSCULAR HGB CONC 30.1 g/dL (31-35); MEAN CORPUSCULAR VOLUME 78.5 fL (81-99); MONOCYTES # (AUTO) 0.7 (0.2-0.8); MONOCYTES % 6.2 % (4.4-11.3); NEUTROPHILS % 65.5 % (38.7-80.0); PLATELET COUNT 351 x10e3/uL (140-360); RED BLOOD COUNT 3.26 x10e6/uL (3.6-5.1); RED CELL DISTRIBUTION WIDTH 21.7 % (11.7-14.4)
[2017-09-20 07:41] LABS: HEMOGLOBIN 7.7 g/dL (12.0-16.0)
[2017-09-20 07:47] LABS: ANION GAP 12.7 mmol/L (8-16); BLOOD UREA NITROGEN 6 mg/dL (7-26); BUN/CREATININE RATIO 7 (6-25); CALCIUM 8.3 mg/dL (8.4-10.2); CARBON DIOXIDE 31 mmol/L (22-29); CHLORIDE 102 mmol/L (98-107); CREATININE, SERUM 0.82 mg/dL (0.57-1.11); EST GLOMERULAR FILTRATION RATE > 60 ML/MIN (60-); GLUCOSE 103 mg/dL (74-118); POTASSIUM 3.7 mmol/L (3.5-5.1); SODIUM 142 mmol/L (136-145)
[2017-09-20] MEDS: BISACODYL 10 MG SUPP PR SCH ×2 (08:53→21:00)
[2017-09-20] MEDS: ACETAMINOPHEN 325 MG TAB PO PRN ×3 (13:34→20:30)
[2017-09-20] MEDS: PANTOPRAZOLE 40 MG 10ML VIAL IV SCH (14:58)
[2017-09-21] VITALS (8 sets, daily range): BP systolic 121–141; BP diastolic 59–68
[2017-09-21] MEDS: ACETAMINOPHEN 325 MG TAB PO PRN ×5 (01:44→19:17)
[2017-09-21] MEDS: BISACODYL 10 MG SUPP PR SCH (08:00)
[2017-09-21] MEDS: ONDANSETRON HCL INJ 2 MG/ML VIAL IV PRN (09:25)
[2017-09-21] MEDS: DEXTROSE 5%/LACTATED RINGERS 1,000 ML IV SCH (13:59)
[2017-09-21] MEDS: PANTOPRAZOLE 40 MG 10ML VIAL IV SCH (16:39)
[2017-09-22] VITALS: BP 132/60
[2017-09-22 04:00] VITALS: BP 147/93
[2017-09-22] MEDS: ACETAMINOPHEN 325 MG TAB PO PRN ×3 (05:00→14:36)
[2017-09-22 08:00] VITALS: BP 136/63
[2017-09-22] MEDS: DEXTROSE 5%/LACTATED RINGERS 1,000 ML IV SCH ×2 (09:59→13:00)
[2017-09-22 10:12] VITALS: BP 136/63
[2017-09-22 12:31] VITALS: BP 114/55
[2017-09-22 16:45] VITALS: BP 124/72
[2017-09-22] MEDS: PANTOPRAZOLE 40 MG 10ML VIAL IV SCH (16:45)
--- NOTE | 2017-11-07 13:33 | Operative Report ---
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 OPERATIONS PERFORMED 1. Exploratory laparotomy. 2. Right hemicolectomy. 3. Total abdominal hysterectomy with bilateral salpingo-oophorectomy. ASSISTANTS 1. Dr. Otoniel Bell. 2. KELL Almaraz ANESTHESIA: General. COMPLICATIONS: None. ESTIMATED BLOOD LOSS: 200 mL. DESCRIPTION OF PROCEDURE: With the patient lying in bed in the supine position under good general endotracheal anesthesia, the abdomen was prepped with Betadine solution and draped in the usual manner. A midline incision was made and was carried down through the subcutaneous tissue down to the midline fascia. The midline fascia was opened. The peritoneum was opened and the abdomen was entered. Upon entering the abdominal cavity, exploration revealed the presence of a palpable mass in the cecum consistent with the patient's known colon cancer. The cecum was not stuck to any other organs. The liver was clean of any metastatic disease. There were no other palpable masses within the small or large bowel. Examination of the pelvis revealed 2 small shrunken down ovaries with the appearance of possible endometriosis and an enlarged uterus with multiple fibroids that extended all the way down into the cervix and occupied most of the pelvis. We decided to go ahead and proceed with the colon resection. First, the right colon was mobilized off of the lateral gutter using the Enseal device and was swung medially. The right ureter and duodenum were identified and preserved. The hepatocolic ligament was then brought down and the lesser sac was entered and the transverse colon was mobilized downward off of the stomach using the Enseal device. The terminal ileum was then divided with an application of JESSICA 75 stapler and similarly, the mid transverse colon was divided with another application of JESSICA 75 stapler and the mesentery of the colon was then taken down using the Enseal device and the entire specimen was sent for pathological examination. After this was done, the anastomosis was then completed with another application of JESSICA 75 stapler, bringing the terminal ileum to the mid transverse colon and the remaining opening was closed with a TA 60 stapler. Gloves and instruments were changed. The anastomosis was reinforced with 3-0 silk and the mesenteric rent was then closed with a running suture of 2-0 Vicryl. Hemostasis was ascertained. After this was done, we then went ahead and proceeded with the total abdominal hysterectomy. Both the right and left ovary were mobilized off of the pedicle. The pedicle was ligated with 0 Vicryl suture ligature and using the Enseal device, both ovaries and tubes were taken off of the peritoneum and mobilized medially. The bladder flap was then developed and the uterus was from the bladder without any difficulty and then using a combination of the Enseal device and 0 Vicryl suture ligatures, the cervix was mobilized all the way down to the vagina. The vagina was then opened and the cervix and uterus were totally and completely removed and sent for pathological examination. The vaginal cuff was then oversewn with a crown stitch of 2-0 Vicryl and was then further approximated with interrupted sutures of 0 Vicryl. Perfect hemostasis was ascertained. The peritoneum was then closed with a running suture of 2-0 Vicryl. The whole abdomen was then copiously irrigated and perfect hemostasis was ascertained and the abdomen was then closed in layers. The peritoneum was closed with a running suture of #1 Vicryl, the midline fascia was closed with a running suture of #1 Vicryl, and the skin was closed with clips. A dressing was applied. The sponge, lap, and needle count was correct. Patient tolerated the procedure well and returned to the recovery room in stable condition. Job#: [id number] VAS
--- NOTE | 2017-11-07 13:43 | Discharge Summary ---
ADMITTING DIAGNOSES 1. Cecal cancer. 2. Pelvic mass with fibroid uterus. 3. Anemia. DISCHARGE DIAGNOSES 1. Cecal cancer. 2. Pelvic mass with fibroid uterus. 3. Anemia. OPERATION PERFORMED: Exploratory laparotomy, right hemicolectomy and total abdominal hysterectomy and bilateral salpingo-oophorectomy. COMPLICATIONS: None. HISTORY OF PRESENT ILLNESS: This 52-year-old female was admitted to the hospital with a history of having a biopsy-proven right colon cancer found at colonoscopy for anemia. Patient was also having dysmenorrhagia and was found to have large uterine fibroids and thus she was brought in for the purpose of right colon resection and a hysterectomy. Physical examination at time of admission was essentially unremarkable except for an enlarged uterus on pelvic examination. Laboratory data was unremarkable except for anemia. Patient was taken to surgery on the day of admission where she underwent an uneventful exploratory laparotomy, right hemicolectomy and total abdominal hysterectomy with bilateral salpingo-oophorectomy. Postoperatively, the patient did very well. Her NG tube was removed on the 3rd postoperative day and she was started on a clear liquid diet. Patient was having normal bowel movements and urinating well. Her diet was slowly and carefully advanced all the way up to a regular diet and finally on 09/22/2017 with the patient being afebrile and vital signs being stable, her wounds healing nicely, tolerating a regular diet and having normal bowel movements, she was discharged to go home to be followed at the office at a later date. FEI WISE MD Job#: [id number] GERI
== END 2017-09-22 19:19 | disposition home or self-care (01) | DRG 331 ==
LOC: OR 08:09 → MED/SURG 18:44
PROVIDERS: ADMIT Surgery; ATTEND Surgery
PROC: 0UTC0ZZ Resection of Cervix, Open Approach (ICD-10-PCS; 2017-09-17)
PROC: 0UT70ZZ Resection of Bilateral Fallopian Tubes, Open Approach (ICD-10-PCS; 2017-09-17)
PROC: 0UT20ZZ Resection of Bilateral Ovaries, Open Approach (ICD-10-PCS; 2017-09-17)
PROC: 0DTF0ZZ Resection of Right Large Intestine, Open Approach (ICD-10-PCS; principal; 2017-09-17 09:30)
PROC: 0UT90ZZ Resection of Uterus, Open Approach (ICD-10-PCS; 2017-09-17 09:30)
DX: C18.0 Malignant neoplasm of cecum (principal); D25.9 Leiomyoma of uterus, unspecified; N94.6 Dysmenorrhea, unspecified; D64.9 Anemia, unspecified
CPT/HCPCS: 36415; 71046; 80048; 84702; 85025; 88307; 88309; 93005; J1100; J1170; J1956; J2001; J2250; J2270; J2405; J2765; J7120

== ENCOUNTER → 2017-10-30 | Outpatient (CLI) | payer BC | END | disposition home or self-care (01) | LOC: MAMMO 12:50 | PROVIDERS: ATTEND Family Medicine | DX: Z12.31 Encounter for screening mammogram for malignant neoplasm of breast (principal) | CPT/HCPCS: 77067 ==

== ENCOUNTER 2017-11-07 09:41 | Emergency (ER) | payer BC ==
[~2017-11-07] VITALS: Ht 162.6 cm; Wt 79.8 kg
--- OUTSIDE RECORDS SUMMARY | 2017-11-07 09:44 | XMS REPORT | Continuity of Care Document ---
Author Author [facility] Organization [facility] Address [address] [place] [address] Phone Unavailable Care Team Providers Care Physician Compensation Analyst Name Role Phone PIPE HERNANDEZ MD PCP Insurance Providers Guarantor Vance Bashir Address [address] [place] [address] Email NONE [facility]ayer [facility] Policy Number [id number] Subscriber's Name Vance Bashir Relationship 18 Self / Same As Patient Group Number [id number] Group Name [employer] Effective Date 17 Advance Directives Directive Response Recorded Date/Time Does the patient have an advance directive? No 09/17/17 7:34pm If yes, is advance directive on file with [facility]? No 09/17/17 7:34pm If not on file with [facility] will patient provide a copy? No 09/17/17 7:34pm Do you have a Directive to Physician? No 09/13/17 12:53pm Do you have a Medical Power of Botany Teacher? No 09/13/17 12:53pm Do you have an out of hospital Do Not Resuscitate Order? No 09/13/17 12:53pm Do you have any special needs we should be aware of? No 09/13/17 12:53pm Do you have a support person here with you today? Yes 09/17/17 8:09am Did patient receive Notice of Privacy Practices? Yes 09/13/17 12:53pm Did patient receive patient rights and responsibilities? Yes 09/13/17 12:53pm Problems Medical Problem Onset Date Status Anemia Unknown Medications Current Home Medications Medication Dose Units Route Directions Days Qty Instructions Start Date Tylenol as needed for Prn Past Home Medications Medication Directions Ordered Status Aspirin 325 Mg Tablet, 325 Mg Oral Daily as needed for Prn Discontinued Aspirin (Aspirin Enteric Coated) 325 Mg Tabec, 81.25 Mg Oral As Needed as needed for Pain Discontinued B Complex With Vitamin C (Super B Complex-Vitamin C) 1 Each Tablet, 1 Tab Oral Daily Discontinued Ciprofloxacin Hcl (Cipro) 500 Mg Tablet, 500 Mg Oral Twice A Day Discontinued [place]-3/Dha/Epa/Fish Oil (Fish Oil 500 Mg Softgel) 1 Each Capsule, 300 Mg Oral Four Times Daily Discontinued Social History Social History Problem Response Recorded Date/Time Onset Date Status Hx Psychiatric Problems No 09/17/2017 7:34pm Not Applicable Not Applicable Hospital Discharge Instructions No hospital discharge instruction information available. Plan of Care Discharge Date 09/22/17 7:19pm Disposition HOME, SELF-CARE Instructions/Education Provided Post Operative Pain Prescriptions See Medication Section Referrals FEI WISE MD (Surgery) Order Date: 09/27/2017 Entered Date: 09/22/2017 6:45pm Address: [address] [place] [id number] Additional Instructions/Education OUT OF BED REGULAR DIET TOLERATED TYLENOL NEED FOR PAIN NO HEAVY LIFTING, NO DRIVING, OKAY TO GO UP AND DOWN STAIRS AND OKAY TO RIDE IN CAR OKAY TO SHOWER CHANGE DRESSING DAILY DEMONSTRATED NEEDED AMARILIS SOLIS FOLLOW UP NEXT Sunday09/27/2017 Functional Status Query Response Date Recorded Ambulation Ability Moderate Assistance September 17, 2017 7:39pm Toileting Ability Minimum Assistance September 22, 2017 5:34pm Allergies, Adverse Reactions, Alerts Allergen Type Severity Reaction Status Last Updated Penicillin Allergy Intermediate Active 01/21/18 Egg Derived Allergy Severe Active 08/12/17 Peanuts Allergy Intermediate Active 08/12/17 Caffeine Allergy Intermediate Active 08/12/17 SUNSCREEN Allergy Mild Active 08/12/17 Immunizations No immunization information available. Vital Signs Acute Vital Signs Vital Response Date/Time Temperature (Fahrenheit) 97.9 degrees F (97.6 - 99.5) 09/22/2017 4:45pm Pulse Pulse Rate (adult) 90 bpm (60 - 90) 09/22/2017 4:45pm Respiratory Rate 20 bpm (12 - 24) 09/22/2017 4:45pm Blood Pressure 124/72 mm Hg 09/22/2017 4:45pm Height 5 ft 5 in 09/17/2017 7:34pm Weight 189 lb 09/17/2017 7:34pm Body Mass Index 31.5 kg/m^2 09/17/2017 7:34pm Results Laboratory Results Test Name Result Units Flags Reference Collection Date/Time Result Date/ Time Comments Metamyelocytes % 2 % H 0-0 08/15/2017 6:50am 08/15/2017 9:57am Polychromasia FEW 08/15/2017 6:50am 08/15/2017 9:57am Poikilocytosis SLIGHT 08/15/2017 6:50am 08/15/2017 9:57am Anisocytosis SLIGHT 08/15/2017 6:50am 08/15/2017 9:57am Prothrombin Time 12.7 seconds 11.9-14.5 08/12/2017 9:05am 08/12/2017 10 :37am Prothromb Time International Ratio 0.91 08/12/2017 9:05am 2017 10:37am Oral Anticoagulant Therapy INR Values: 1. Low Intensity Therapy 1.5 - 2.0 2. Moderate Intensity Therapy 2.0 - 3.0 3. High Intensity Therapy(1) 2.5 - 3.5 4. High Intensity Therapy(2) 3.0 - 4.0 5. Panic Value INR > 5.0 Activated Partial Thromboplast Time 28.1 seconds 23.8-35.5 08/12/2017 9: 05am 08/12/2017 10:37am Urine Color YELLOW YELLOW 08/12/2017 8:42am 08/12/2017 11:58am Urine Clarity CLEAR CLEAR 08/12/2017 8:42am 08/12/2017 11:58am Urine Specific [place] 1.020 1.010-1.025 08/12/2017 8:42am 2017 11:58am Urine pH 5 5 - 7 08/12/2017 8:42am 08/12/2017 11:58am Urine Leukocyte Esterase NEGATIVE NEGATIVE 08/12/2017 8:42am 2017 11:58am Urine Nitrite NEGATIVE NEGATIVE 08/12/2017 8:42am 08/12/2017 11:58am Urine Protein NEGATIVE NEGATIVE 08/12/2017 8:42am 08/12/2017 11:58am Urine Glucose (UA) NEGATIVE NEGATIVE 08/12/2017 8:42am 08/12/2017 11: 58am Urine Ketones NEGATIVE NEGATIVE 08/12/2017 8:42am 08/12/2017 11:58am Urine Urobilinogen 0.2 mg/dL 0.2 - 1 08/12/2017 8:42am 08/12/2017 11: 58am Urine Bilirubin NEGATIVE NEGATIVE 08/12/2017 8:42am 08/12/2017 11: 58am Urine Blood NEGATIVE NEGATIVE 08/12/2017 8:42am 08/12/2017 11:58am Urine WBC 0-5 /HPF 0-5 08/12/2017 8:42am 08/12/2017 12:11pm Urine RBC 0-5 /HPF 0-5 08/12/2017 8:42am 08/12/2017 12:11pm Urine Bacteria FEW /HPF NONE 08/12/2017 8:42am 08/12/2017 12:11pm Urine Epithelial Cells FEW /LPF NONE 08/12/2017 8:42am 08/12/2017 12: 11pm Iron Level 27 ug/dL L 50-170 08/13/2017 8:55am 08/13/2017 9:32am Total Iron Binding Capacity 507 ug/dL H 261-478 08/13/2017 8:55am 2017 9:32am Percent Iron Saturation 5 % L 15-50 08/13/2017 8:55am 08/13/2017 9:32am Transferrin 362 mg/dL 180-382 08/13/2017 8:55am 08/13/2017 9:32am Total Bilirubin < 0.3 mg/dL 0.2-1.2 08/15/2017 6:50am 08/15/2017 7: 54am Aspartate Amino Transf (AST/SGOT) 18 IU/L 5-34 08/15/2017 6:50am 2017 7:54am Alanine Aminotransferase (ALT/SGPT) 27 IU/L 0-55 08/15/2017 6:50am 7:54am Total Protein 7.2 g/dL 6.5-8.1 08/15/2017 6:50am 08/15/2017 7:54am Albumin 3.3 g/dL L 3.5-5.0 08/15/2017 6:50am 08/15/2017 7:54am Globulin 3.9 g/dL H 2.3-3.5 08/15/2017 6:50am 08/15/2017 7:54am Albumin/Globulin Ratio 0.8 0.8-2.0 08/15/2017 6:50am 08/15/2017 7: 54am Alkaline Phosphatase 67 IU/L 40-150 08/15/2017 6:50am 08/15/2017 7: 54am Creatine Kinase 48 IU/L 29-168 08/12/2017 9:05am 08/12/2017 10:26am Creatine Kinase MB 0.60 ng/mL 0.00-5.00 08/12/2017 9:0508/12/2017 10 :39am Troponin I 0.013 ng/mL 0-0.300 08/12/2017 9:0508/12/2017 10:39am Vitamin B12 Level 606 pg/mL 213-816 08/12/2017 9:0508/12/2017 12: 30pm Thyroid Stimulating Hormone (TSH) 2.842 uIU/mL 0.350-4.940 08/12/2017 9: 0508/12/2017 10:39am Carcinoembryonic Antigen 0.8 ng/mL 0.0-4.7 08/14/2017 6:30am 2017 6:56pm Niharika ECLIA methodology Nonsmokers <3.9 Smokers <5.6 Performed at: - [facility] [address] [id number] Take Out Waitress: Travis Alegria MD, Phone: [phone] Tissue Transglutaminase IgA Ab 4 U/mL H 0-3 08/13/2017 8:55am 2017 8:08am Negative 0 - 3 Weak Positive 4 - 10 Positive >10 Tissue Transglutaminase (tTG) has been identified as the endomysial antigen. Studies have demonstr- ated that endomysial IgA antibodies have over 99% specificity for gluten sensitive enteropathy. Immunoglobulin A 208 mg/dL 87-352 08/13/2017 8:55am 08/16/2017 8:08am Performed at: BN - [facility] [address] [id number] Take Out Waitress: James Carrero MD, Phone: [phone] Performed at: - [facility] [address] [id number] Take Out Waitress: Travis Alegria MD, Phone: [phone] Endomysial IgA Antibody Negative Negative 08/13/2017 8:55am 2017 8:08am Stool Occult Blood POSITIVE H NEGATIVE 08/13/2017 8:20am 08/13/2017 11 :33am White Blood Count 10.69 x10e3/uL 4.8-10.8 09/20/2017 6:45am 09/20/2017 7:41am Red Blood Count 3.26 x10e6/uL L 3.6-5.1 09/20/2017 6:45am 09/20/2017 7: 41am Hemoglobin 7.7 g/dL *L 12.0-16.0 09/20/2017 6:45am 09/20/2017 7:41am Results called to FLEX CHRISTIANSON RN at 0740 on 09/20/17 by Gage Marshall. RB OK. This test has been rerun and double checked for accuracy. Hematocrit 25.6 % L 34.2-44.1 09/20/2017 6:45am 09/20/2017 7:41am Mean Corpuscular Volume 78.5 fL L 81-99 09/20/2017 6:45am 09/20/2017 7: 41am Mean Corpuscular Hemoglobin 23.6 pg L 28-32 09/20/2017 6:45am 2017 7:41am Mean Corpuscular Hemoglobin Concent 30.1 g/dL L 31-35 09/20/2017 6:45am 09/20/2017 7:41am Red Cell Distribution Width 21.7 % H 11.7-14.4 09/20/2017 6:45am 2017 7:41am Platelet Count 351 x10e3/uL 140-360 09/20/2017 6:45am 09/20/2017 7: 41am Neutrophils (%) (Auto) 65.5 % 38.7-80.0 09/20/2017 6:45am 09/20/2017 7: 41am Lymphocytes (%) (Auto) 23.6 % 18.0-39.1 09/20/2017 6:45am 09/20/2017 7: 41am Monocytes (%) (Auto) 6.2 % 4.4-11.3 09/20/2017 6:45am 09/20/2017 7: 41am Eosinophils (%) (Auto) 3.8 % 0.0-6.0 09/20/2017 6:45am 09/20/2017 7: 41am Basophils (%) (Auto) 0.4 % 0.0-1.0 09/20/2017 6:45am 09/20/2017 7:41am IM GRANULOCYTES % 0.5 % 0.0-1.0 09/20/2017 6:45am 09/20/2017 7:41am Neutrophils # (Auto) 7.0 H 2.1-6.9 09/20/2017 6:45am 09/20/2017 7: 41am Lymphocytes # (Auto) 2.5 1.0-3.2 09/20/2017 6:45am 09/20/2017 7:41am Monocytes # (Auto) 0.7 0.2-0.8 09/20/2017 6:45am 09/20/2017 7:41am Eosinophils # (Auto) 0.4 0.0-0.4 09/20/2017 6:45am 09/20/2017 7:41am Basophils # (Auto) 0.0 0.0-0.1 09/20/2017 6:45am 09/20/2017 7:41am Absolute Immature Granulocyte (auto 0.05 x10e3/uL 0-0.1 09/20/2017 6: 45am 09/20/2017 7:41am Differential Total Cells Counted 100 09/13/2017 2:30pm 09/13/2017 5 :08pm Neutrophils % (Manual) 69 % 40-74 09/13/2017 2:30pm 09/13/2017 5:08pm Lymphocytes % (Manual) 22 % 19-48 09/13/2017 2:30pm 09/13/2017 5:08pm Monocytes % (Manual) 2 % L 3.4-9.0 09/13/2017 2:30pm 09/13/2017 5:08pm Eosinophils % (Manual) 3 % 0-7 09/13/2017 2:30pm 09/13/2017 5:08pm Basophils % (Manual) 1 % 0-1.5 09/13/2017 2:30pm 09/13/2017 5:08pm Reactive Lymphocytes 3 09/13/2017 2:30pm 09/13/2017 5:08pm Platelet Estimate ADEQUATE 09/13/2017 2:30pm 09/13/2017 5:08pm Platelet Morphology Comment NORMAL 09/13/2017 2:30pm 09/13/2017 5: 08pm Hypochromasia MODERATE 09/13/2017 2:30pm 09/13/2017 5:08pm Red Cell Morphology Comment NORMAL 09/13/2017 2:30pm 09/13/2017 5: 08pm Sodium Level 142 mmol/L 136-145 09/20/2017 6:45am 09/20/2017 7:47am Potassium Level 3.7 mmol/L 3.5-5.1 09/20/2017 6:45am 09/20/2017 7:47am Chloride Level 102 mmol/L 98-107 09/20/2017 6:45am 09/20/2017 7:47am Carbon Dioxide Level 31 mmol/L H -09/20/2017 6:45am 09/20/2017 7: 47am Anion Gap 12.7 mmol/L 8-16 09/20/2017 6:45am 09/20/2017 7:47am Blood Urea Nitrogen 6 mg/dL L 7-09/20/2017 6:45am 09/20/2017 7:47am Creatinine 0.82 mg/dL 0.57-1.11 09/20/2017 6:45am 09/20/2017 7:47am BUN/Creatinine Ratio 7 6-09/20/2017 6:45am 09/20/2017 7:47am Estimat Glomerular Filtration Rate > 60 ML/MIN 60- 09/20/2017 6:45am 7:47am Ranges were taken from the National Kidney Disease Education Program and the National Kidney Foundation literature. Reference ranges: 60 or greater: Normal 16-59 (for 3 consecutive months): Chronic kidney disease 15 or less: Kidney failure Glucose Level 103 mg/dL 74-118 09/20/2017 6:45am 09/20/2017 7:47am Calcium Level 8.3 mg/dL L 8.4-10.2 09/20/2017 6:45am 09/20/2017 7:47am Human Chorionic Gonadotropin, Qual NEGATIVE NEGATIVE 09/17/2017 8: 55am 09/17/2017 9:56am Procedures Procedure Status Date Provider(s) EGD BIOPSY SINGLE/MULTIPLE Completed 08/12/17 JOSEFA MERCEDES MD COLONOSCOPY AND BIOPSY Completed 08/12/17 JOSEFA MERCEDES MD Exploratory laparotomy Completed 09/17/17 FEI WISE MD Computed tomography of abdomen and pelvis with contrast Active 08/12/17 JOSEFA MERCEDES MD US transvaginal Active 08/13/17 MARIAH SORENSEN DO X-ray of chest, two views Active 09/13/17 FEI WISE MD Encounters Encounter Location Arrival/Admit Date Discharge/Depart Date Attending Provider Discharged Inpatient [facility] 09/17/17 6:44pm 09/22/17 7:19pm FEI WISE MD Discharged Inpatient (obs) [facility] 08/12/17 11:01am 2:00pm PIPE HERNANDEZ MD
[2017-11-07] MEDS ORDERED: VITAMIN B-121000 MCG PO (10:01)
[2017-11-07] MEDS ORDERED: IRON PO (10:01)
[2017-11-07] MEDS ORDERED: FERRALET 90 DU1 EACH PO (10:01)
[2017-11-07] MEDS ORDERED: DIPHENHYDRAMINE HCL INJ 50 MG/ML VIAL IV STA (11:21)
[2017-11-07] MEDS ORDERED: FAMOTIDINE 20 MG/2 ML VIAL IV STA (11:21)
[2017-11-07] MEDS ORDERED: DEXAMETHASONE SOD PHOS 10 MG/1 ML VIAL IV ONE (11:30)
[2017-11-07 13:04] VITALS: BP 131/82
== END 2017-11-07 13:17 | disposition home or self-care (01) ==
LOC: ER 09:44
DX: L50.9 Urticaria, unspecified (principal)
CPT/HCPCS: 99284; J1100; J1200

== ENCOUNTER → 2017-11-16 | Outpatient (CLI) | payer BC ==
[~2017-11-16] MED LIST changes: +FERRALET 90 DU1 EACH PO; +IRON PO; +VITAMIN B-121000 MCG PO
--- NOTE | 2017-11-16 16:00 | Diagnostic Imaging Report ---
#[id number] - [id number] #UNILATERAL LEFT DIGITAL DIAGNOSTIC MAMMOGRAM WITH SPOT COMPRESSION AND MAGNIFICATION: 11/16/2017 Comparison is made to exam dated: 10/30/2017 mammogram - [facility]. There are scattered fibroglandular elements in the left breast. No significant masses, calcifications, or other findings are seen in the breast. There are two clusters of calcification in the 12 and 11 o'clock position. These davin++ are indeterminate and seeing how her first mamogram was on 10/30/2017 a follow up left breast mammogram in 6 months to ascertain stability is recommended. IMPRESSION: PROBABLY BENIGN A follow-up mammogram in 6 months is recommended to demonstrate stability. The patient was notified of these findings and the need for follow up. Linwood Gan Jr., D.O. cw/:11/16/2017 15:08:33 Cable Systems Installer: Char KAUR(Tadeo)(Mega), [facility] letter sent: Followup Recommended Mammogram BI-RADS: 3 Probably benign
== END ==
LOC: MAMMO 14:13
PROVIDERS: ATTEND Family Medicine
DX: N64.59 Other signs and symptoms in breast (principal)

== ENCOUNTER 2018-03-10 19:08 | Emergency (ER) | payer BC ==
[~2018-03-10] VITALS: Ht 162.6 cm; Wt 79.8 kg
[2018-03-10] MEDS ORDERED: FAMOTIDINE 20 MG TAB PO ONE (19:15)
[2018-03-10] MEDS ORDERED: DIPHENHYDRAMINE HCL 25 MG CAP PO ONE (19:15)
[2018-03-10] MEDS ORDERED: DEXAMETHASONE SOD PHOS 10 MG/1 ML VIAL INJ ONE (19:15)
== END 2018-03-10 20:14 | disposition home or self-care (01) ==
LOC: ER 19:08
DX: T63.441A Toxic effect of venom of bees, accidental (unintentional), initial encounter (principal); Y92.008 Other place in unspecified non-institutional (private) residence as the place of occurrence of the external cause
CPT/HCPCS: 96372; 99282; J1100

== ENCOUNTER → 2018-05-15 | Outpatient (CLI) | payer BC ==
--- NOTE | 2018-05-16 09:01 | Diagnostic Imaging Report ---
#[id number] - [id number] #UNILATERAL LEFT DIGITAL DIAGNOSTIC MAMMOGRAM WITH CAD: 05/15/2018 Comparison is made to exams dated: 11/16/2017 mammogram and 10/30/2017 mammogram - [facility]. Current study contains 9 films. There are scattered fibroglandular elements in the left breast. The two areas of calcification in the left breast do not appear significantly changed or increased. These therefore are likely benign. A followup bilateral mammogram in October 2018 to maintain continued stability is necessary. Current study was also evaluated with a Computer Aided Detection (CAD) system. No significant masses, calcifications, or other findings are seen in the breast. IMPRESSION: PROBABLY BENIGN A follow-up mammogram in 6 months is recommended to demonstrate stability. The patient has been or will be notified of the results. Linwood Gan Jr., D.O. cw/:05/15/2018 16:28:44 Advertising Traffic Manager: Char KAUR(Tadeo)(Mega), [facility] letter sent: Followup Recommended Mammogram BI-RADS: 3 Probably benign
== END ==
LOC: MAMMO 05-08 08:32
PROVIDERS: ATTEND Family Medicine
DX: R92.1 Mammographic calcification found on diagnostic imaging of breast (principal)

== ENCOUNTER → 2018-06-14 | Outpatient (CLI) | payer BC ==
--- NOTE | 2018-06-14 11:14 | Diagnostic Imaging Report ---
ADDENDUM #1 IMPRESSION: The appendix is not visualized. Signed by: Dr. Bronwyn Thompson M.D. on 07/11/2018 4:35 PM ORIGINAL REPORT EXAM: Magnetic resonance cholangiopancreatography (MRCP) without contrast INDICATION: Right-sided abdominal pain. Past medical history of colon cancer and endometriosis. COMPARISON: Correlation with CT abdomen pelvis 08/12/2017.. TECHNIQUE: Technique: Multiplanar, multisequence MRCP was performed, with sequences including coronal turbo spin-echo T1-weighted scans, H MRCP scans, coronal spin, coronal MPR 2, SMRCP 3D HR, [facility] MRCP NICOLE. No contrast medium. Discussion: LOWER THORAX: Unremarkable. HEPATOBILIARY: Diffuse decrease in signal of the hepatic parenchyma on the T1 out of phase scans consistent with steatosis. No focal hepatic lesions. No biliary ductal dilation. GALLBLADDER: No radio-opaque stones or sludge. No wall thickening. SPLEEN: No splenomegaly. PANCREAS: No focal masses or ductal dilatation. ADRENALS: No adrenal nodules KIDNEYS/URETERS: Kidneys enhance symmetrically. No hydronephrosis. No cystic or solid mass lesions. No stones. GI TRACT: No abnormal distention, wall thickening, or evidence of bowel obstruction. Appendix is normal. LYMPH NODES: No lymphadenopathy. VESSELS: Unremarkable. PERITONEUM / RETROPERITONEUM: No free air or fluid. BONES: Unremarkable. Tiny sacral perineural cysts. SOFT TISSUES: Small fat-containing umbilical hernia. IMPRESSION: Hepatic steatosis. Signed by: Dr. Bronwyn Thompson M.D. on 06/14/2018 11:11 AM
== END ==
LOC: MRI 07:54
PROVIDERS: ATTEND Internal Medicine Gastroenterology
DX: R10.11 Right upper quadrant pain (principal); R10.811 Right upper quadrant abdominal tenderness; R94.5 Abnormal results of liver function studies; Z71.3 Dietary counseling and surveillance; Z85.038 Personal history of other malignant neoplasm of large intestine
CPT/HCPCS: 74181

== ENCOUNTER → 2018-11-12 | Outpatient (CLI) | payer BC ==
--- NOTE | 2018-11-13 09:18 | Diagnostic Imaging Report ---
#[id number] - [id number] #BILATERAL DIGITAL DIAGNOSTIC MAMMOGRAM WITH CAD SHORT-TERM FOLLOW-UP: 11/12/2018 Comparison is made to exams dated: 05/15/2018 mammogram, 11/16/2017 mammogram and 10/30/2017 mammogram - [facility]. Current study contains 9 films. There are scattered fibroglandular elements in both breasts. Current study was also evaluated with a Computer Aided Detection (CAD) system. Two areas of microcalcifications in the left breast appear unchanged and are likely benign. No significant masses, calcifications, or other findings are seen in either breast. IMPRESSION: PROBABLY BENIGN A follow-up mammogram in 6 months of the left breast is recommended to demonstrate stability. The patient was notified of the results of this study. Linwood Gan Jr., D.O. cw/:11/12/2018 17:30:57 Manager Of Customer Billing: Char KAUR(Tadeo)(Mega), [facility] letter sent: Followup Recommended Mammogram BI-RADS: 3 Probably benign
== END ==
LOC: MAMMO 08:41
PROVIDERS: ATTEND Family Medicine
DX: R92.1 Mammographic calcification found on diagnostic imaging of breast (principal)
CPT/HCPCS: 77066

== ENCOUNTER → 2022-11-07 | Outpatient (CLI) | payer BC | LOC: MAMMO 09:52 | PROVIDERS: ATTEND Family Medicine | DX: Z12.31 Encounter for screening mammogram for malignant neoplasm of breast (principal) | CPT/HCPCS: 77067 ==

== ENCOUNTER → 2024-06-24 | Outpatient (REF) | payer MEDICARE | LOC: US 10:59 | PROVIDERS: ATTEND Internal Medicine Gastroenterology | DX: R74.8 Abnormal levels of other serum enzymes (principal); K76.0 Fatty (change of) liver, not elsewhere classified | CPT/HCPCS: 76700 ==